=== PATIENT | male | born 1975 | race Hispanic/Latino ===

== ENCOUNTER 2024-01-16 10:16 | Emergency (ER) | payer BC ==
[2024-01-16] MEDS ORDERED: ONDANSETRON 4 MG/2 ML VIAL ONE (10:45)
[2024-01-16] MEDS ORDERED: FAMOTIDINE 20 MG/2 ML VIAL IV ONE (10:45)
[2024-01-16] MEDS ORDERED: MORPHINE 4 MG/ML SYR ONE (10:45)
[2024-01-16] MEDS ORDERED: NA CHLORIDE 0.9% 1,000 ML ONE (10:45)
[2024-01-16 11:14] LABS: Absolute Eosinophils 0.2 K/uL (0-0.5); Absolute Lymphocytes (CBC) 1.9 K/uL (0.7-4.9); Absolute Monocytes 0.5 K/uL (0.1-1.3); Absolute Neutrophil 3.5 K/uL (1.8-8.0); Basophils % 0.6 % (0-1.3); Eosinophils % 3.4 % (0-4.4); Hemoglobin 13.9 g/dL (13.6-17.9); Lymphocytes % 30.7 % (15.3-44.8); MCH 29.6 pg (27.0-35.0); MCHC 33.1 g/dL (32.0-36.0); MCV 89.4 fL (80-100); Monocytes % 8.6 % (3.3-12.3); Neutrophils % 56.7 % (41.7-73.7); Platelets 254 thou/uL (152-406); RBC Red Blood Cell Count 4.69 M/uL (4.33-5.43); Red Cell Distribution Width 14.7 % (12.1-15.2)
[2024-01-16 11:37] LABS: Albumin 3.7 g/dL (3.4-5.0); Anion Gap 8.8 mEq/L (5.0-15.0); Bilirubin Total 0.5 mg/dL (0.2-1.0); Globulin 3.7 g/dL (2.3-3.5); Potassium 3.8 mEq/L (3.5-5.1); Protein, Total 7.4 g/dL (6.4-8.2); Troponin High Sensitivity 4.8 pg/mL (<58.9)
[2024-01-16 11:42] LABS: Specific Gravity 1.018 (1.005-1.030); Sqamous Epithelial None Seen /HPF (None Seen); Urine Bacteria None Seen /HPF (<20); Urine Bilirubin NEGATIVE (Negative); Urine Blood Negative (Negative); Urine Clarity Clear (Clear); Urine Color Light-Yellow (Yellow); Urine Culture Reflex Order NOT NEEDED; Urine Glucose NEGATIVE (Negative); Urine Ketones NEGATIVE (Negative); Urine Microscopic Reflex YN ORDER UMIC; Urine Mucus Slight /HPF (None Seen); Urine Nitrite NEGATIVE (Negative); Urine Protein TRACE (Negative); Urine RBC None Seen /HPF (None Seen); Urine Urobilinogen Normal (Normal); Urine WBC None Seen /HPF (<5); Urine pH 5.5 (5.0-7.0)
--- NOTE | 2024-01-16 12:34 | RAD REPORT ---
EXAM: Testicular/scrotal ultrasound HISTORY: PAIN COMPARISON: None TECHNIQUE: Multiplanar grayscale and color Doppler images were obtained in a testicular/scrotal ultra sound. Spectral analysis of the Doppler waveforms of the testicles were performed. FINDINGS: Right testicle: Normal in echogenicity. No focal mass. Normal internal flow. The right testicle stephanie ures 2.8 x 2.4 x 2.8 cm with volume of 13.5 cc. Left testicle: Normal in echogenicity. No focal mass.. Normal internal flow. The left testicle measu res 4.5 x 2 x 2.6 cm with volume of 12.1 cc. Right epididymis. 8 mm right epididymal cyst. Normal internal flow. Left epididymis. No epididymal cyst. Normal internal flow. No hydrocele is present. No varicocele is present. IMPRESSION: Bilateral testicular blood flow. 8 mm right epididymal cyst.
--- NOTE | 2024-01-16 12:36 | RAD REPORT ---
EXAMINATION: CT ABDOMEN AND PELVIS WITH CONTRAST CLINICAL INDICATION: Male, 48 years old.ABD PAIN TECHNIQUE: CT abdomen and pelvis was performed, after the administration of IV contrast, as [facility]. Axial, sagittal and coronal reconstructions were obtained. One or more of the following dose reduction techniques were used: Automated exposure control, adjustment of the mA and/o r kV according to patient size, and/or iterative reconstruction. Unless otherwise specified, incidental findings do not require dedicated imaging follow-up. [id number]. COMPARISON: No prior exam. FINDINGS: LOWER CHEST: The visualized lung bases are clear. LIVER: Normal in size and contour. No focal lesion. Hepatic steatosis GALLBLADDER/BILE DUCT: No biliary ductal dilatation.? PANCREAS: No significant abnormality. SPLEEN: Normal size. No focal lesion. ADRENALS: Normal; no mass. KIDNEYS AND URETERS: Normal size and contour. No hydronephrosis. GASTROINTESTINAL TRACT: Stomach is non-dilated. Small bowel has normal course and caliber. No colonic wall thickening or pericolonic inflammatory changes. Normal appendix. PERITONEUM: No ascites. Small Fat-containing inguinal hernias. LYMPH NODES: No lymphadenopathy. ABDOMINAL AORTA AND OTHER VESSELS: Normal caliber aorta and IVC. URINARY BLADDER: Normal contour. REPRODUCTIVE ORGANS: No pathologic process MUSCULOSKELETAL: No acute or suspicious osseous abnormality. Mild disc height loss at L5-S1. ADDITIONAL FINDINGS: None. IMPRESSION: No acute or significant abnormalities seen in the abdomen or pelvis.
--- NOTE | 2024-01-16 12:50 | ER ---
Nurse's Notes [facility] Name: Isma Sanchez Age: 48 yrs Sex: Male : 1975 Arrival Date: 01/16/2024 Time: 10:16 Bed 8 Private MD: Diagnosis: Abdominal pain, unspecified;Abnormal findings on diagnostic imaging of other specified body structures-left testicle cystic area 8 mm epididymal cyst;Cyst of epididymis Presentation: 01/15 10:24 Chief complaint: Patient states: L flank pain. Initial Sepsis Screen: Does the patient ll1 meet any 2 criteria? No. Patient's initial sepsis screen is negative. Does the patient have a suspected source of infection? No. Patient's initial sepsis screen is negative. Risk Assessment: Do you want to hurt yourself or someone else? Patient reports no desire to harm self or others. 10:24 Method Of Arrival: Ambulatory ll1 10:24 Acuity: NILA 3 ll1 10:30 Coronavirus screen: At this time, the client does not indicate any symptoms associated rs5 with coronavirus-19. Ebola Screen: No symptoms or risks identified at this time. 10:30 Onset of symptoms was January 16, 2024. rs5 Triage Assessment: 10:24 General: Appears uncomfortable, Behavior is calm, cooperative, appropriate for age. ll1 Pain: Complains of pain in left lower quadrant and left mid back Quality of pain is described as aching. GI: Reports lower abdominal pain, nausea, vomiting. Musculoskeletal: Reports pain in back. 10:30 General: Appears in no apparent distress. uncomfortable, Behavior is calm, cooperative. rs5 Musculoskeletal: Range of motion: intact in all extremities. Historical: - Allergies: 10:24 Ibuprofen; ll1 - PMHx: 10:30 None; rs5 - PSHx: 10:30 None; rs5 - Immunization history:: Adult Immunizations up to date. - Infectious Disease History:: Denies. - Social history:: Smoking status: Patient denies any tobacco usage or history of. Screenin:[address] [facility] ED Fall Risk Assessment (Adult) History of falling in the last 3 months, rs5 including since admission No falls in past 3 months (0 pts) Confusion or Disorientation No (0 pts) Intoxicated or Sedated No (0 pts) Impaired Gait No (0 pts) Mobility Assist Device Used No (0 pt) Altered Elimination No (0 pt) Score/Fall Risk Level 0 - 2 = Low Risk Oriented to surroundings, Maintained a safe environment. Abuse screen: Denies threats or abuse. Nutritional screening: No deficits noted. Tuberculosis screening: No symptoms or risk factors identified. Assessment: 10:30 Reassessment:. General: Appears in no apparent distress. uncomfortable, Behavior is rs5 calm, cooperative. Pain: Complains of pain in left low back Pain radiates to back Pain currently is 5 out of 10 on a pain scale. Quality of pain is described as aching, Is continuous. Neuro: Level of Consciousness is awake, alert, obeys commands, Oriented to person, place, time, situation. Cardiovascular: Patient's skin is warm and dry. Respiratory: Airway is patent Respiratory effort is even, unlabored, Respiratory pattern is regular, symmetrical. GI: Abdomen is round non-distended, Abd is soft and non tender X 4 quads. Reports. 10:30 : No signs and/or symptoms were reported regarding the genitourinary system. EENT: No rs5 signs and/or symptoms were reported regarding the EENT system. Derm: Skin is intact, Skin is pink, warm \T\ dry. Musculoskeletal: Range of motion: intact in all extremities. 11:34 Reassessment: Patient and/or family updated on plan of care and expected duration. Pain rs5 level reassessed. Patient is alert, oriented x 3, equal unlabored respirations, skin warm/dry/pink. 12:41 Reassessment: Patient and/or family updated on plan of care and expected duration. Pain rs5 level reassessed. Patient is alert, oriented x 3, equal unlabored respirations, skin warm/dry/pink. 13:15 Reassessment: Patient and/or family updated on plan of care and expected duration. Pain rs5 level reassessed. Patient is alert, oriented x 3, equal unlabored respirations, skin warm/dry/pink. Vital Signs: 10:24 BP 138 / 97; Pulse 72; Resp 17; Temp 97.9; Pulse Ox 98% ; Pain 8/10; ll1 12:01 BP 127 / 79; Pulse 74; Resp 17; Pulse Ox 98% on R/A; rs5 13:10 BP 135 / 81; Pulse 70; Resp 17; Pulse Ox 99% on R/A; rs5 10:24 Pain Scale: Adult ll1 ED Course: 10:22 Patient arrived in ED. im 10:23 Brian Evans MD is Attending Physician. neto 10:24 Arm band placed on Patient placed in an exam room, on a stretcher. ll1 10:25 Triage completed. ll1 10:30 Patient has correct armband on for positive identification. Placed in gown. Bed in low rs5 position. Call light in reach. Side rails up X2. 10:30 No provider procedures requiring assistance completed. rs5 10:42 Roshan Vail, ERIS is Primary Nurse. rs5 12:23 CT Abd/Pelvis - IV Contrast Only In Process Unspecified. EDMS 12:24 US Scrotum Testicles In Process Unspecified. EDMS 12:49 Javad Scott MD is Referral Physician. neto 13:20 IV discontinued, intact, bleeding controlled, No redness/swelling at site. Pressure rs5 dressing applied. Administered Medications: 10:30 Drug: NS 0.9% IV 1000 ml IV at 1 bolus Per protocol; to be given as a bolus over 60 rs5 minutes Route: IV; Rate: 1 bolus; Site: right antecubital; 11:35 Follow up: IV Status: Completed infusion; IV Intake: 1000ml rs5 11:29 Not Given (Patient Refused): ondansetron 4 mg IVP once; over 2 minutes rs5 11:30 Not Given (Patient Refused): [id number] mg IVP once; dilute with 10 mL 0.9% NaCl; rs5 give over 2 minutes 11:30 Not Given (Patient Refused): morphineor iv 4 mg IVP once over 4 mins rs5 Medication: 11:01 VIS not applicable for this client. rs5 Intake: 11:35 IV: 1000ml; Total: 1000ml. rs5 Outcome: 12:49 Discharge ordered by . neto 13:20 Discharged to home ambulatory, rs5 13:20 Condition: stable rs5 13:20 Discharge instructions given to patient, family, Instructed on discharge instructions, follow up and referral plans. Demonstrated understanding of instructions, follow-up care, medications, Prescriptions given X 2, 13:21 Patient left the ED. rs5 Signatures: Dispatcher [employer] EDNE Brian Evans MD MD cha Lewis, Lynsay, RN RN ll1 Roshan Vail, RN RN rs5 Ulysses, Chelsea im
--- NOTE | 2024-01-16 12:50 | EDPHYS ---
Physician Documentation [facility] Name: Isma Sanchez Age: 48 yrs Sex: Male : 1975 Arrival Date: 01/16/2024 Time: 10:16 Bed 8 Private MD: ED Physician Brian Evans HPI: 01/15 10:53 This 48 yrs old Male presents to ER via Ambulatory with complaints of Back neto Pain, Abdominal Pain. 10:53 The patient presents with pain that is acute, with no known mechanism of injury. The neto symptoms are located in the left low back and left mid back. Onset: The symptoms/episode began/occurred yesterday. Historical: - Allergies: 10:24 Ibuprofen; ll1 - PMHx: 10:30 None; rs5 - PSHx: 10:30 None; rs5 - Immunization history:: Adult Immunizations up to date. - Infectious Disease History:: Denies. - Social history:: Smoking status: Patient denies any tobacco usage or history of. ROS: 10:54 Constitutional: Negative for fever, chills, and weight loss, Eyes: Negative for injury, neto pain, redness, and discharge, ENT: Negative for injury, pain, and discharge, Neck: Negative for injury, pain, and swelling, Cardiovascular: Negative for chest pain, palpitations, and edema, Respiratory: Negative for shortness of breath, cough, wheezing, and pleuritic chest pain, Back: Negative for injury and pain, : Negative for injury, bleeding, discharge, and swelling, MS/Extremity: Negative for injury and deformity, Skin: Negative for injury, rash, and discoloration, Neuro: Negative for headache, weakness, numbness, tingling, and seizure, 10:54 Abdomen/GI: Positive for abdominal pain, nausea, vomiting, abdominal cramps, of the anterior aspect of left lateral abdomen, posterior aspect of left lateral abdomen and left lower quadrant, Exam: 10:54 Constitutional: This is a well developed, well nourished patient who is awake, alert, neto and in no acute distress. Head/Face: Normocephalic, atraumatic. Eyes: Pupils equal round and reactive to light, extra-ocular motions intact. Lids and lashes normal. Conjunctiva and sclera are non-icteric and not injected. Cornea within normal limits. Periorbital areas with no swelling, redness, or edema. ENT: Nares patent. No nasal discharge, no septal abnormalities noted. Tympanic membranes are normal and external auditory canals are clear. Oropharynx with no redness, swelling, or masses, exudates, or evidence of obstruction, uvula midline. Mucous membranes moist. Neck: Trachea midline, no thyromegaly or masses palpated, and no cervical lymphadenopathy. Supple, full range of motion without nuchal rigidity, or vertebral point tenderness. No Meningismus. Chest/axilla: Normal chest wall appearance and motion. Nontender with no deformity. No lesions are appreciated. Cardiovascular: Regular rate and rhythm with a normal S1 and S2. No gallops, murmurs, or rubs. Normal PMI, no JVD. No pulse deficits. Respiratory: Lungs have equal breath sounds bilaterally, clear to auscultation and percussion. No rales, rhonchi or wheezes noted. No increased work of breathing, no retractions or nasal flaring. Back: No spinal tenderness. No costovertebral tenderness. Full range of motion. Male : Normal genitalia with no discharge or lesions. Skin: Warm, dry with normal turgor. Normal color with no rashes, no lesions, and no evidence of cellulitis. MS/ Extremity: Pulses equal, no cyanosis. Neurovascular intact. Full, normal range of motion. Neuro: Awake and alert, GCS 15, oriented to person, place, time, and situation. Cranial nerves II-XII grossly intact. Motor strength 5/5 in all extremities. Sensory grossly intact. Cerebellar exam normal. Normal gait. Psych: Awake, alert, with orientation to person, place and time. Behavior, mood, and affect are within normal limits. 10:54 Abdomen/GI: Inspection: abdomen appears normal, Bowel sounds: normal, Palpation: mild abdominal tenderness, in the anterior aspect of left lateral abdomen, posterior aspect of left lateral abdomen and left lower quadrant, Liver: no appreciated palpable abnormalities, Hernia: not appreciated, Vital Signs: 10:24 BP 138 / 97; Pulse 72; Resp 17; Temp 97.9; Pulse Ox 98% ; Pain 8/10; ll1 12:01 BP 127 / 79; Pulse 74; Resp 17; Pulse Ox 98% on R/A; rs5 13:10 BP 135 / 81; Pulse 70; Resp 17; Pulse Ox 99% on R/A; rs5 10:24 Pain Scale: Adult ll1 MDM: 10:29 Medical Screening Exam initiated neto 11:00 Differential diagnosis: Hydronephrosis Obesity Perforated Ulcer Pyelonephritis Renal neto Infarction ruptured disc, Scoliosis diverticulitis, gastritis, gastroesophageal reflux disease, non-specific abd pain, pancreatitis, Peptic Ulcer Disease, Peritonitis, Prostatitis, Pyelonephritis. Data reviewed: vital signs, nurses notes, lab test result(s), radiologic studies, CT scan. Consideration of Admission/Observation Patient was admitted/placed on observation. Escalation of care including admission/observation considered. I considered the following discharge prescriptions or medication management in the emergency department Medications were administered in the Emergency Department. See MAR. Independent interpretation of the following test(s) in the Emergency Department CT Scan: My interpretation is ct abd/pel. Test considered but Not performed: Ultrasound no abd usg. Care significantly affected by the following chronic conditions: Obesity. Counseling: I had a detailed discussion with the patient and/or guardian regarding the historical points, exam findings, and any diagnostic results supporting the discharge/admit diagnosis, lab results, radiology results. 01/15 10:25 Order name: CBC with Diff; Complete Time: 11:40 [facility] 01/15 10:25 Order name: CMP; Complete Time: 11:40 [facility] 01/15 10:25 Order name: Lipase; Complete Time: 11:40 [facility] 01/15 10:25 Order name: Urinalysis w/ reflexes; Complete Time: 12:24 [facility] 01/15 10:25 Order name: Troponin High Sensitivity; Complete Time: 11:40 [facility] 01/15 10:25 Order name: CT Abd/Pelvis - IV Contrast Only; Complete Time: 12:48 [facility] 01/15 11:07 Order name: US Scrotum Testicles; Complete Time: 12:48 [facility] 01/15 10:25 Order name: EKG; Complete Time: 10:26 [facility] 01/15 10:25 Order name: IV Saline Lock; Complete Time: 11:30 [facility] 01/15 10:25 Order name: Labs collected and sent; Complete Time: 11:30 [facility] 01/15 10:25 Order name: EKG - Nurse/Tech; Complete Time: 11:29 [facility] Administered Medications: 10:30 Drug: NS 0.9% IV 1000 ml IV at 1 bolus Per protocol; to be given as a bolus over 60 rs5 minutes Route: IV; Rate: 1 bolus; Site: right antecubital; 11:35 Follow up: IV Status: Completed infusion; IV Intake: 1000ml rs5 11:29 Not Given (Patient Refused): ondansetron 4 mg IVP once; over 2 minutes rs5 11:30 Not Given (Patient Refused): [id number] mg IVP once; dilute with 10 mL 0.9% NaCl; rs5 give over 2 minutes 11:30 Not Given (Patient Refused): morphineor iv 4 mg IVP once over 4 mins rs5 Disposition Summary: 01/16/24 12:49 Discharge Ordered Notes: Location: Home neto Problem: new neto Symptoms: have improved neto Condition: Stable neto Diagnosis - Abdominal pain, unspecified neto - Abnormal findings on diagnostic imaging of other specified body structures - left [facility] testicle cystic area 8 mm epididymal cyst - Cyst of epididymis neto Followup: neto - With: Private Physician - When: 2 - 3 days - Reason: Recheck today's complaints, Continuance of care, Re-evaluation by your physician Followup: neto - With: Javad Scott MD - When: 2 - 3 days - Reason: Recheck today's complaints, Re-evaluation by your physician Discharge Instructions: - Discharge Summary Sheet neto - Abdominal Pain, Adult neto - Flank Pain, Adult neto - Incidental Abnormal Radiological Finding neto - Flank Pain, Adult, [id number] [facility] Forms: - Medication Reconciliation Form neto - Antibiotic Education neto - Prescription Opioid Use neto - Patient Portal Instructions [facility] - Leadership Thank You Letter [facility] Prescriptions: - Zofran 4 mg Oral Tablet - take 1 tablet ORAL route every 12 hours As needed; 20 tablet; Refills: 0, neto Product Selection Permitted - dicyclomine 20 mg Oral tablet - take 1 tablet ORAL route 4 times per day; 28 tablet; Refills: 0, Product [facility] Selection Permitted Signatures: Dispatcher [employer] EDBrian Mccall MD MD cha Lewis, Lynsay RN RN ll1 Roshan Vail RN RN rs5 Corrections: (The following items were deleted from the chart) 10:26 10:26 CBC+H.LAB.BRZ ordered. EDMS EDMS 10:26 10:26 COMPREHENSIVE METABOLIC PANEL+C.LAB.BRZ ordered. EDMS EDMS 10:26 10:26 LIPASE+C.LAB.BRZ ordered. EDMS EDMS 10: 10:26 Urinalysis+U.LAB.BRZ ordered. EDMS EDMS 10: 10:26 Troponin High Sensitivity+C.LAB.BRZ ordered. EDMS EDMS
[2024-01-16 16:40] VITALS: BP 138/97; TEMP 97.9; O2SAT 98
--- NOTE | 2024-01-18 12:57 | EKG ---
Test Date: 2024-01-16 Test Time: 11:01:20 Foundry Engineer: NUBIA MEASUREMENT RESULTS: Intervals: Rate: 69 CO: 168 QRSD: 80 QT: 400 QTc: 428 [place]: P: 49 CO: 168 QRS: 36 T: 32 INTERPRETIVE STATEMENTS: Normal sinus rhythm Normal ECG No previous ECG available for comparison Electronically Signed On 01-18-24 12:51:22 CDT by Earnest Marino
== END 2024-01-16 13:21 | disposition home or self-care (01) ==
LOC: ER 10:16
DX: N50.3 Cyst of epididymis (principal)
CPT/HCPCS: 93005; 85025; 81001; 36415; 84484; 83690; 80053; 74177; 76870; 96360; 99284; Q9967; J7030; J2405